=== PATIENT | male | born 1955 | race Caucasian/White ===

== ENCOUNTER 2021-05-09 20:39 | Outpatient (REF) | payer BC, SELFPAY ==
[2021-05-09 21:15] LABS: Anion Gap 8.1 mmol/L (3-11); BUN 16 mg/dL (7-18); CO2 28.9 mmol/L (21.0-32.0); Calcium 9.7 mg/dL (8.5-10.1); Calculated LDL 118 mg/dL (<100); Chloride 104 mmol/L (98-107); Cholesterol 180 mg/dL (<200); Glucose 101 mg/dL (74-106); HDL Cholesterol 47 mg/dL (40-60); Potassium 4.4 mmol/L (3.5-5.1); Sodium 141 mmol/L (136-145); Triglyceride 76 mg/dL (<150)
[2021-05-10 18:11] LABS: PSA, Screening 4.3 ng/mL (0.0-4.5)
== END 2021-05-09 20:40 | disposition home or self-care (01) ==
LOC: NCHCN 20:39
PROVIDERS: PCP Internal Medicine; Visit Provider Nurse Practitioner Family
DX: Z12.5 Encounter for screening for malignant neoplasm of prostate (principal); Z13.220 Encounter for screening for lipoid disorders; Z00.00 Encounter for general adult medical examination without abnormal findings; Z82.49 Family history of ischemic heart disease and other diseases of the circulatory system
CPT/HCPCS: 80048; 80061; 84153

== ENCOUNTER 2025-01-25 22:33 | Outpatient (REF) | payer MEDICARE, SELFPAY ==
[2025-01-25 14:57] LABS: HCT 43.3 % (40.0-50.0); HGB 14.4 g/dL (13.5-17.5); MCH 29.9 pg (27.0-33.0); MCHC 33.3 % (32.0-36.0); MCV 90 fL (80-95); MPV 11.8 fL (8.0-11.0); Platelet Count 203 10^3/uL (130-400); RBC 4.81 10^6/uL (4.36-5.78); RDW 13.2 % (11.8-14.1); RDW-SD 43.7 fL; WBC 5.90 10^3/uL (4.4-10.8)
[2025-01-25 15:23] LABS: ALT 63 U/L (16-63); AST 34 U/L (15-37); Albumin 3.9 g/dL (3.4-5.0); Alkaline Phosphatase 65 U/L (46-116); Anion Gap 4.3 mmol/L (3-11); BUN 22 mg/dL (7-18); Bilirubin, Total 0.6 mg/dL (0.2-1.0); CO2 27.7 mmol/L (21.0-32.0); Calcium 9.1 mg/dL (8.5-10.1); Calculated LDL 114 mg/dL (<100); Chloride 104 mmol/L (98-107); Cholesterol 179 mg/dL (<200); Estimated GFR 82.49 (mL/min/1.73m2); Glucose 92 mg/dL (74-106); HDL Cholesterol 43 mg/dL (>or=40); Potassium 4.3 mmol/L (3.5-5.1); Sodium 136 mmol/L (136-145); Total Protein 8.9 g/dL (6.4-8.2); Triglyceride 114 mg/dL (<150)
[2025-01-25 22:56] LABS: PSA, Screening 4.1 ng/mL (<=4.5)
== END 2025-01-25 22:34 | disposition home or self-care (01) ==
LOC: NCHCN 22:33
PROVIDERS: PCP Internal Medicine; Visit Provider Internal Medicine
DX: Z00.00 Encounter for general adult medical examination without abnormal findings (principal); Z12.5 Encounter for screening for malignant neoplasm of prostate
CPT/HCPCS: 80053; 80061; 84153; 85027

== ENCOUNTER → 2025-05-01 10:59 | Outpatient (BNVA) | payer MEDICARE, SELFPAY | PROVIDERS: PCP Internal Medicine; Referring Provider Internal Medicine; Visit Provider Student in an Organized Health Care Education/Training Program | DX: Z12.11 Encounter for screening for malignant neoplasm of colon (principal); K92.1 Melena | CPT/HCPCS: S0285 ==

== ENCOUNTER 2025-05-10 07:53 | Day surgery (SDC) | payer MEDICARE, SELFPAY ==
[2025-05-10 07:58] VITALS: BP 130/92; PULSE 73; RESP 18; TEMP 36.3; O2SAT 96
[2025-05-10] MEDS: Lactated Ringers 1,000 ML 80 ML IV (08:21)
--- NOTE | 2025-05-10 08:39 | W.ANESPRE ---
General Info Date of Service Date Performed: 05/10/25 Height: 5 ft 9 in Weight: 87.9 kg Body Mass Index (BMI): 28.6 Surgical Procedure: Operation Date: 05/10/25 09:35 Proposed Procedure Side Surgeon arely Sanders MD Meds Allergies and Home Medications Allergies Allergy/AdvReac Type Severity Reaction Status Date / Time No Known Allergies Allergy Verified 05/10/25 08:10 Home Medication ?Medication ?Instructions ?Recorded atorvastatin 20 mg tablet (Lipitor) 20 mg PO DAILY 04/25/25 bimatoprost 0.01 % eye drops 1 drp ophthalmic (eye) QPM 04/25/25 (Lumigan) bisacodyl 5 mg tablet,delayed 5 mg PO ONCE #4 tabs 05/03/25 release (Dulcolax (bisacodyl)) polyethylene glycol 3350 17 17 g PO ONCE #238 grams 05/03/25 gram/dose oral powder Current Visit Medications: Current Medications Generic Name Dose Route Start Last Admin Trade Name Freq PRN Reason Stop Dose Admin Ringer's Solution 1,000 mls @ 80 mls/hr 05/10/25 06:00 05/10/25 08:21 IV 05/10/25 23:59 80 mls/hr INFUSION ROSA Administration IV Miscellaneous Supplies 1 each 05/10/25 06:00 Iv Access IV 05/10/25 23:59 DIRECTED ROSA Sodium Chloride 0 ml 05/10/25 06:00 Normal Saline Flush 10 Ml Syr IV 05/10/25 23:59 PRN PRN Sodium Chloride 0 ml 05/10/25 06:00 Normal Saline 10 Ml Vial IJ 05/10/25 23:59 DIRECTED PRN Sterile Water 0 ml 05/10/25 06:00 Water,Injection,Sterile 10 Ml Vial IJ 05/10/25 23:59 DIRECTED PRN PFSH Active Problems Active Problems: Problem Status Onset Code Hematochezia Acute K92.1 Benign prostatic hyperplasia Chronic N40.0 Glaucoma Chronic H40.9 Hyperlipidemia Acute E78.5 Medical History Medical History Left knee pain Former smoker Surgical History Surgical History Hx of vasectomy (~1982) Hx of tonsillectomy (~1963) Tobacco Smoking/Tobacco Use Status: Former Tobacco Use Passive smoking exposure: No Alcohol Alcohol Intake: never Substance Use Substance use type: does not use Vital Signs and Lab Results Vital Signs Most Recent Vital Signs in EMR: Most Recent Vital Signs Temp Pulse Resp BP Pulse Ox 36.3 C L 73 18 130/92 H 96 05/10/25 07:58 05/10/25 07:58 05/10/25 07:58 05/10/25 07:58 05/10/25 07:58 Anesthesia Assessment and Plan Anesthesia History Personal History: No History of Anesthesia Complications Family History: No Family History of Anesthesia Complications Exercise Tolerance Exercise Tolerance: Metabolic Equivalents>4 Pertinent Negatives Pertinent Negatives: No Symptoms of GERD Cardiac & Pulmonary Exam Cardiac Exam: Normal S1/S2 Heart Sounds Pulmonary Exam: Clear Bilateral Breath Sounds Implantable Cardiac Device Does patient have a Pacemaker or an ICD?: No Airway Exam Known Difficult Airway: No Mallampati Class: 2 Mouth Opening: Normal (> 3cm) Thyromental Distance: Greater than 3 cm Neck Range of Motion: Full ROM Neck Circumference: Normal Teeth Condition: Normal Dentition ASA Classification ASA Score: ASA 2 Emergency Case?: No NPO Status NPO Status: NPO Clears >2 hours, Solids >8 hours Anesthesia Plan Resuscitation Status: Full Code Anesthesia Technique: General Anesthesia Airway Planned: Natural Airway Monitors Used: Standard Monitors
[2025-05-10 08:40] VITALS: BMI 28.6
[2025-05-10 09:15] VITALS: BP 105/81; PULSE 69; RESP 14; TEMP 36.4; O2SAT 95
--- NOTE | 2025-05-10 09:16 | W.PM.DSUDISC ---
Date of service: 05/10/25 Discharge Plan Disposition Patient Disposition: Home Discharge Details Reason For Visit: Bright red blood per rectum Attending Provider: Felicitas Sanders Primary Care Provider: Liliane Mendez Home Meds and New Rx's Prescriptions: Continued atorvastatin [Lipitor] 20 mg tablet 20 mg PO DAILY Lumigan 0.01 % drops 1 drp ophthalmic (eye) QPM Discontinued bisacodyl [Dulcolax (bisacodyl)] 5 mg tablet,delayed release (DR/EC) 5 mg PO ONCE Qty: 4 0RF Rx Instructions: Take per colonoscopy instructions provided by ordering providers office polyethylene glycol 3350 17 gram/dose powder 17 g PO ONCE Qty: 238 0RF Rx Instructions: Take per colonoscopy instructions provided by ordering providers office Discharge Instructions Instructions: Hemorrhoids Additional Instructions: Your colonoscopy went well today. You did have evidence of hemorrhoids but no other concerning findings. You should have a repeat colonoscopy in 10 years. Please contact the general surgery office if you have further questions or concerns. 1. If tolerated, consume a soft, low fiber diet for 1-2 days. 2[address] Do not drive, drink alcohol, operate machinery, make critical decisions, or do activities that require coordination or balance for 24 hours. 3. Because air was put into your colon during the procedure, expelling air from your rectum (passing gas or farting) is normal. 4. You may not have a bowel movement for 1-3 days because of the colonoscopy prep. This is normal. 5. Go directly to the emergency room if you notice any of the following: Develop chills (warm to touch), or if you have a thermometer and your temperature is above 101 Difficulty breathing or difficultly swallowing Persistent vomiting Severe abdominal pain, other than gas cramps Severe chest pain Black, tarry stools Any bleeding ? exceeding one tablespoon 6. Call your physician if the site where your intravenous was started becomes red, swollen, painful, and warm to touch. 7. Your physician has reviewed your pre-procedure medications. Please continue to take those medications as previously ordered. You will be given specific information/education regarding any changes to your medications before leaving. Stand Alone Forms: Anesthesia Discharge Inst., Colonoscopy Post Instructions, Octaviano Rivas (DSU) Activity:: Activity as Tolerated Diet:: As Tolerated Discharge Orders Discharge Orders: Discharge Order (Routine); Ordered 05/10/25 Ordered By: Felicitas Sanders
--- NOTE | 2025-05-10 09:18 | W.COLOREPORT ---
Date of service: 05/10/25 Time of Service: 09:19 Colonoscopy Report Date of procedure: 05/10/25 Pre-op diagnosis general: Bright red blood per rectum Post-op diagnosis procedure note: other (Hemorrhoids) Procedure: Colonoscopy Surgeon: Felicitas Sanders Anesthesia Type: General:No Airway Estimated blood loss (mL): 1 Pathology: other Complications: None Disposition: PACU Indications: Patient is a 70-year-old male who presents for diagnostic colonoscopy given bright red blood per rectum. He denies any other concerning findings. Prep: Miralax/Dulcolax Procedure Start Time: 08:56 Procedure End Time: 09:11 Retraction Time: 8 Findings: Evidence of internal and external hemorrhoids. Otherwise normal colonoscopy. Procedure Description: Informed consent was obtained. The patient was taken to the endoscopy suite and placed in the left lateral decubitus position. After adequate intravenous sedation, digital rectal exam was performed, which was normal. There was evidence of both external and internal hemorrhoids. A colonoscope was inserted into the rectum and easily negotiated to the cecum. The ileocecal valve and appendiceal orifice were identified. The entire colonic mucosa was then carefully circumferentially inspected upon slow withdrawal of the scope. The cecum, ascending, transverse, and descending colon were all normal. Retroflexion in the rectum was unremarkable except for evidence of internal hemorrhoids. The patient tolerated the procedure well with no complications. Postoperatively, the patient was transferred to the recovery room in stable condition. [place]be Bowel Prep Lac[place]be Bowel Prep Right Colon: 3 Left Colon: 3 Transverse Colon: 3 Total Score: 9
--- NOTE | 2025-05-10 09:26 | W.ANESPOSTOP ---
Postoperative Evaluation Date, Time and Location Date Performed: 05/10/25 Time Performed: 09:26 Patient Location: Day Surgery Unit Vital Signs Most Recent Imported Vital Signs: Most Recent Vital Signs Temp Pulse Resp BP Pulse Ox 36.4 C L 69 14 105/81 95 05/10/25 09:15 05/10/25 09:15 05/10/25 09:15 05/10/25 09:15 05/10/25 09:15 Pain Score Most Recent Pain Score: Most Recent Pain Score Pain Level 0 05/10/25 09:15 Assessment Mental Status: Awake (Alert & Oriented to Patient Baseline) Airway and Respiratory Function: Patent airway with normal (patient baseline) respiratory exam Cardiovascular Function: Hemodynamically Stable Hydration Status: Adequately Hydrated Nausea & Vomiting: No Nausea or Vomiting Pain: Pt. Denies Any Pain Peripheral Nerve Block: Patient did not receive a nerve block
[2025-05-10 09:34] VITALS: BP 121/95; PULSE 67; RESP 16; TEMP 36.2; O2SAT 94
== END 2025-05-10 09:47 | disposition home or self-care (01) ==
PROVIDERS: PCP Internal Medicine; Visit Provider Student in an Organized Health Care Education/Training Program
PROC: 0DJD8ZZ Inspection of Lower Intestinal Tract, Via Natural or Artificial Opening Endoscopic (ICD-10-PCS; CPT 45378; principal; 2025-05-10 09:30)
DX: K62.5 Hemorrhage of anus and rectum (principal); K64.8 Other hemorrhoids; K64.4 Residual hemorrhoidal skin tags
CPT/HCPCS: 45378; J2704